=== PATIENT | female | born 2005 | race Caucasian/White ===

== ENCOUNTER 2023-12-13 21:49 | Emergency (ER) | payer OTHER, SELFPAY ==
[2023-12-13 21:52] VITALS: BP 141/85; PULSE 105; RESP 18; TEMP 36.6; O2SAT 100; BMI 25.7
[2023-12-13 22:17] VITALS: PULSE 89; O2SAT 100
[2023-12-13 22:18] VITALS: BP 132/82; PULSE 92; O2SAT 100
[2023-12-13 22:25] LABS: Add Manual Diff / Slide Review NO; Basophils Absolute Auto 0 /uL (0-100); Basophils Percent Auto 0.3 % (0-2); Eosinophils Absolute Auto 100 /uL (0-450); Eosinophils Percent Auto 1.2 % (2-4); Hematocrit 40.7 % (36-46); Hemoglobin 13.6 g/dL (12.0-16.0); Lymphocytes Absolute Auto 1600 /uL (1100-4500); Lymphocytes Percent Auto 26.3 % (25-40); Mean Corpuscular HGB Conc 33.4 % (30-36); Mean Corpuscular Hemoglobin 25.3 PG (26-34); Mean Corpuscular Volume 75.7 fL (80-100); Monocytes Absolute Auto 600 /uL (0-900); Monocytes Percent Auto 9.3 % (3-14); Neutrophils Absolute Auto 3900 /uL (1500-7000); Neutrophils Percent Auto 62.9 % (50-75); Platelet Count 297 X10^3/uL (150-400); Red Blood Cell Count 5.38 X10^6/uL (4.0-5.2); Red Cell Distribution Width 17.6 % (11.6-14.8); White Blood Cell Count 6.2 X10^3/uL (4.5-11.0)
[2023-12-13 22:30] VITALS: BP 120/76; PULSE 92; O2SAT 100
[2023-12-13 22:43] LABS: Bacteria Urine Occasional (0-1); Culture Indicated Urine Specimen Cultured; RBC Urine 30-100/HPF (0-5/HPF); Squamous Epithelial Cell Urine 0-1 /HPF (0-5/HPF); Urine Volume 10mL (spun); WBC Urine 0-1/HPF (0-5/HPF)
[2023-12-13 22:43] LABS: Alanine Aminotransferase 20 IU/L (<35); Albumin 4.8 g/dL (3.5-5.0); Albumin Globulin Ratio 1.4 (1.0-2.8); Alkaline Phosphatase 69 U/L (38-126); Aspartate Aminotransferase 27 IU/L (14-36); BUN Creatinine Ratio 17.7 (6-22); Bilirubin Total 0.6 mg/dL (0.2-1.3); Blood Urea Nitrogen 11 mg/dL (7-17); Calcium 10.1 mg/dL (8.4-10.2); Carbon Dioxide 24 mmol/L (22-32); Chloride 103 mmol/L (98-107); Estimated Glomerular Filt Rate > 60 mL/min (>60); Globulin 3.4 g/dL (1.7-4.1); Glucose 99 mg/dL (70-100); HEMOLYSIS 20 (0-50); Lipase 61 U/L (23-300); Potassium 3.5 mmol/L (3.4-5.1); Sodium 138 mmol/L (137-145); Total Protein 8.2 g/dL (6.3-8.2)
[2023-12-13 23:00] VITALS: BP 97/66; PULSE 76; O2SAT 99
[2023-12-13 23:30] VITALS: BP 103/68; PULSE 76; O2SAT 98
[2023-12-14] VITALS: BP 114/71; PULSE 85; O2SAT 100
--- NOTE | 2023-12-14 00:12 | ED_ITS ---
HPI - Abdominal Pain General Chief Complaint: Abdominal Pain Stated Complaint: Abd Pain/burning in chest Time Seen by Provider: 12/14/23 00:06 Source: patient Mode of arrival: Ambulatory History of Present Illness HPI narrative: Patient is a 18-year-old female with history of anemia currently on iron pills presents today with epigastric pain and burning in her chest. She reports it has been for the last 2 weeks. Maybe a little worse today. Sometimes she feels nauseous. She was instructed not to take any ibuprofen. She has not taken any Tums or omeprazole or [id number] medications. She has not had fever or chills. No active vomiting. She was told that she was anemic and started taking iron pills. Related Data Previous Rx's Medication Instructions Recorded omeprazole 20 mg capsule,delayed 20 mg PO DAILY #30 caps 12/14/23 release Allergies Allergy/AdvReac Type Severity Reaction Status Date / Time No Known Drug Allergies Allergy Verified 12/13/23 21:51 Patient History Social History Smoking Status: Never smoker Smoking Status: Never smoker Substance Use Type: does not use Exam Initial Vital Signs Initial Vital Signs: Vital Signs Temperature 97.9 F 12/13/23 21:52 Pulse Rate 105 H 12/13/23 21:52 Respiratory Rate 18 12/13/23 21:52 Blood Pressure 141/85 H 12/13/23 21:52 Pulse Oximetry 100 12/13/23 21:52 Oxygen Delivery Method Room Air 12/13/23 21:52 GENERAL: Alert well-appearing 18-year-old female and in no acute distress. HEENT: Head atraumatic,EOMI, pupils reactive, face symmetric, moist mucous membranes CARDIOVASCULAR: Regular rate and rhythm without murmurs, rubs or gallops. RESPIRATORY: Breath sounds equal bilaterally, no wheezes rales or rhonchi. ABDOMEN: Soft, epigastric pain no guarding no rebound negative Muro's sign no lower abdominal pain EXTREMITIES: Normal range of motion, no clubbing or edema. Neurovascularly intact NEUROLOGICAL: Alert and oriented x4 SKIN: Warm, dry, no laceration, no petechiae, no rashes or lesions. Course Orders Ordered: ED Orders 12/13/23 22:11 Complete Blood Count AUTO DIFF Stat Comprehensive Metabolic Panel Stat Lipase Stat 12/13/23 22:15 Urine Culture Stat Urine Microscopic Stat Discontinued Medications Al Hydrox/Mg Hydrox/Simethicone 20 ml/ Lidocaine HCl 15 ml 0 ml PO NOW ONE Stop: 12/14/23 00:13 Last Admin: 12/14/23 00:18 Dose: 35 ml Documented By: Ondansetron HCl (Ondansetron 4 Mg/2 Ml Inj) 4 mg IV NOW PRN PRN Reason: Nausea And Vomiting Last Admin: 12/14/23 00:19 Dose: 4 mg Documented By: Pantoprazole Sodium (Pantoprazole 40 Mg Vial) 40 mg IV NOW ONE Stop: 12/14/23 00:13 Last Admin: 12/14/23 00:24 Dose: 40 mg Documented By: Vital Signs Vital signs: Vital Signs - 8 hr 12/13/23 21:52 12/13/23 22:17 12/13/23 22:18 Temperature 97.9 F Pulse Rate 105 H 89 Respiratory Rate 18 Blood Pressure 141/85 H 132/82 Pulse Oximetry 100 100 Oxygen Delivery Method Room Air 12/13/23 22:18 12/13/23 22:30 12/13/23 22:30 Temperature Pulse Rate 92 H 92 H Respiratory Rate Blood Pressure 120/76 Pulse Oximetry 100 100 Oxygen Delivery Method 12/13/23 23:00 12/13/23 23:00 12/13/23 23:30 Temperature Pulse Rate 76 Respiratory Rate Blood Pressure 97/66 103/68 Pulse Oximetry 99 Oxygen Delivery Method 12/13/23 23:30 12/14/23 00:00 12/14/23 00:00 Temperature Pulse Rate 76 85 Respiratory Rate Blood Pressure 114/71 Pulse Oximetry 98 100 Oxygen Delivery Method 12/14/23 00:30 12/14/23 00:31 12/14/23 00:31 Temperature Pulse Rate 84 85 Respiratory Rate Blood Pressure 114/65 Pulse Oximetry 99 100 Oxygen Delivery Method MDM - Abdominal Pain Lab Data 12/13/23 22:11 12/13/23 22:11 Labs: Lab Results 12/13/23 12/13/23 Range/Units 22:11 22:15 WBC 6.2 (4.5-11.0) X10^3/uL RBC 5.38 H (4.0-5.2) X10^6/uL Hgb 13.6 (12.0-16.0) g/dL Hct 40.7 (36-46) % MCV 75.7 L (80-100) fL MCH 25.3 L (26-34) PG MCHC 33.4 (30-36) % RDW 17.6 H (11.6-14.8) % Plt Count 297 (150-400) X10^3/uL Neut % (Auto) 62.9 (50-75) % Lymph % (Auto) 26.3 (25-40) % [place] % (Auto) 9.3 (3-14) % Eos % (Auto) 1.2 L (2-4) % Baso % (Auto) 0.3 (0-2) % Neut # (Auto) 3900 (6603-5929) /uL Lymph # (Auto) 1600 (9078-0016) /uL [place] # (Auto) 600 (0-900) /uL Eos # (Auto) 100 (0-450) /uL Baso # (Auto) 0 (0-100) /uL Sodium 138 (137-145) mmol/L Potassium 3.5 (3.4-5.1) mmol/L Chloride 103 (98-107) mmol/L Carbon Dioxide 24 (22-32) mmol/L BUN 11 (7-17) mg/dL Creatinine 0.62 (0.52-1.04) mg/dL Estimated GFR > 60 (>60) mL/min BUN/Creatinine Ratio 17.7 (6-22) Glucose 99 (70-100) mg/dL Calcium 10.1 (8.4-10.2) mg/dL Total Bilirubin 0.6 (0.2-1.3) mg/dL AST 27 (14-36) IU/L ALT 20 (<35) IU/L Alkaline Phosphatase 69 (38-126) U/L Total Protein 8.2 (6.3-8.2) g/dL Albumin 4.8 (3.5-5.0) g/dL Globulin 3.4 (1.7-4.1) g/dL Albumin/Globulin Ratio 1.4 (1.0-2.8) Lipase 61 (23-300) U/L Urine RBC 30-100/hpf H (0-5/HPF) Urine WBC 0-1/hpf (0-5/HPF) Ur Squamous Epith Cells 0-1 /hpf (0-5/HPF) Urine Bacteria Occasional (0-1) (None) Ur Culture Indicated? Specimen cultured Vol Urine Centrifuged 10ml (spun) Point of care testing: Point of Care Testing Test Results Negative Urine Dip Bedside Urine Glucose Negative Bedside Urine Bilirubin - Negative Bedside Urine Ketone +/- 5 Urine Specific [place] 6.0 Bedside Urine Occult Blood +++ Bedside Urine Protein - Negative Bedside Urine Urobilinogen - Negative Bedside Urine Nitrite - Negative Bedside Urine Leukocytes +/- 15 Esterase MDM Narrative Medical decision making narrative: Patient is a healthy 18-year-old female diagnosed with anemia and probable acid reflux recently presenting today with burning in her epigastric region entire chest. Symptoms are most consistent with acid reflux. She is given Protonix and a GI cocktail in the ED which does help. Blood work has been reviewed hemoglobin 13.6 hematocrit 40 shows MCV of 75, electrolytes are stable no AMELIA no elevated bilirubin or liver enzymes lipase is 61. At this time patient has minimal epigastric pain blood work is overall reassuring she has no significant anemia. No evidence of pancreatitis in no real right upper quadrant pain. Symptoms are related to her GERD. She was not started on any medications for it. We discussed omeprazole and given a 2 week trial. Agree with avoiding ibuprofen but Tylenol is okay. Discharge Plan Departure Patient Disposition: Home Clinical Impression: GERD (gastroesophageal reflux disease) Instructions: DI for Gastroesophageal Reflux Disease (GERD) Activity Restrictions/Additional Instructions: *You have been diagnosed with acid reflux *What to do: Avoid acidic foods. He may need further evaluation. Omeprazole does take about 2 weeks but hopefully you start to notice some improved *Continue to take medications as directed Omeprazole 20 mg once a day maybe morning or night finding on when you have the worse symptoms *Follow up with your primary care provider in 2-3 days or call [phone] *Return to ER if you should have increasing pain nausea vomiting fever or any new, worsening or concerning symptoms Prescriptions: New omeprazole 20 mg capsule,delayed release(DR/EC) 20 mg PO DAILY Qty: 30 0RF Stand Alone Forms: Patient Portal/API
[2023-12-14] MEDS: MAG HYDROX/ALUMINUM/SIMETH SUS 20 ML, LIDOCAINE VISCOUS 2% 15 ML PO (00:18)
[2023-12-14] MEDS: ONDANSETRON 4 MG/2 ML INJ IV (00:19)
[2023-12-14] MEDS: PANTOPRAZOLE 40 MG VIAL IV (00:24)
[2023-12-14 00:30] VITALS: PULSE 84; O2SAT 99
[2023-12-14 00:31] VITALS: BP 114/65; PULSE 85; O2SAT 100
== END 2023-12-14 00:51 | disposition home or self-care (01) ==
PROVIDERS: Emergency Provider Emergency Medicine
DX: K21.9 Gastro-esophageal reflux disease without esophagitis (principal)
CPT/HCPCS: 36415; 80053; 81003; 81015; 81025; 83690; 85025; 87086; 96374; 96375; 99284; C9113; J2405

== ENCOUNTER 2023-12-15 21:12 | Emergency (ER) | payer OTHER, SELFPAY ==
[2023-12-15] VITALS (7 sets, daily range): BP systolic 106–141; BP diastolic 68–83; PULSE 105–121; RESP 16–20; TEMP 36.8; O2SAT 99–100; BMI 25.7
[2023-12-15] MEDS: MAG HYDROX/ALUMINUM/SIMETH SUS 20 ML, LIDOCAINE VISCOUS 2% 15 ML PO (21:50)
[2023-12-15] MEDS: PANTOPRAZOLE 40 MG VIAL IV (21:50)
[2023-12-15] MEDS: SODIUM CHLORIDE 0.9% 1,000 ML 1000 ML IV (21:51)
--- NOTE | 2023-12-15 21:57 | ED.GENADULT ---
HPI - General Adult General Chief complaint: Abdominal Pain Stated complaint: dx'd with 3 blood disorders, not feeling well Time Seen by Provider: 12/15/23 21:18 Source: patient Mode of arrival: Ambulatory History of Present Illness HPI narrative: 18-year-old female with a recent diagnosis of Willebrand's disease and hemophilia a. Was seen here in the emergency department yesterday. Diagnosed with abdominal pain most likely related to reflux disease. Was started on omeprazole. Had normal labs. Returns today for continued discomfort. She has taking the omeprazole. Discomfort not necessarily worse with palpation or eating. She is having vaginal bleeding but is on her menstrual cycle. She also states that sometimes at night when she is sleeping she reflux stomach contents into her throat. No change in bowel habits. Is on iron prescribed by primary provider. She states that she generally isn't feeling well. His episodes of lightheadedness. Related Data Previous Rx's Medication Instructions Recorded omeprazole 20 mg capsule,delayed 20 mg PO DAILY #30 caps 12/14/23 release sucralfate 100 mg/mL oral 10 ml PO QACHS #414 mL 12/15/23 suspension (Carafate) Allergies Allergy/AdvReac Type Severity Reaction Status Date / Time No Known Drug Allergies Allergy Verified 12/13/23 21:51 Review of Systems Review of Systems ROS Unobtainable: All systems reviewed & are unremarkable except as noted in HPI and below Patient History Social History Smoking Status: Never smoker Smoking Status: Never smoker Substance Use Type: does not use Exam Initial Vital Signs Initial Vital Signs: Vital Signs Pulse Rate 121 H 12/15/23 21:27 Blood Pressure 141/83 H 12/15/23 21:27 Pulse Oximetry 100 12/15/23 21:27 Oxygen Delivery Method Room Air 12/15/23 21:27 Const General: cooperative, comfortable and No ill appearing HENMT Head: normal to inspection and normocephalic Resp Effort & Inspection: normal respiratory effort Auscultation: clear to auscultation bilaterally Cardio Rate: tachycardic Rhythm: regular rhythm GI Inspection: normal to inspection and non-distended Palpation: soft, No firm, No guarding and No tender Other: Negative Muro's sign. Back/Spine/Pelvis Back: No CVA tenderness Skin General: no rashes or lesions noted Neuro General: patient alert, patient awake and moves all extremities Extrem General: capillary refill normal Course Orders Ordered: ED Orders 12/15/23 21:50 Complete Blood Count AUTO DIFF Stat Comprehensive Metabolic Panel Stat Lipase Stat Discontinued Medications Al Hydrox/Mg Hydrox/Simethicone 20 ml/ Lidocaine HCl 15 ml 0 ml PO NOW ONE Stop: 12/15/23 21:37 Last Admin: 12/15/23 21:50 Dose: 35 ml Documented By: CITLALY Sodium Chloride (Normal Saline 0.9%) 1,000 mls @ 1,000 mls/hr IV BOLUS ONE Stop: 12/15/23 22:34 Last Infusion: 12/15/23 22:51 Dose: Infused Documented By: Admin: 12/15/23 21:51 Dose: 1,000 mls/hr Documented By: CITLALY Pantoprazole Sodium (Pantoprazole 40 Mg Vial) 40 mg IV NOW ONE Stop: 12/15/23 21:37 Last Admin: 12/15/23 21:50 Dose: 40 mg Documented By: CITLALY Vital Signs Vital signs: Vital Signs - 8 hr 12/15/23 21:27 12/15/23 21:27 12/15/23 21:29 Temperature 98.3 F Pulse Rate 121 H 120 H Respiratory Rate 20 Blood Pressure 141/83 H 141/83 H Pulse Oximetry 100 100 Oxygen Delivery Method Room Air Room Air 12/15/23 21:30 12/15/23 22:00 12/15/23 22:23 Temperature Pulse Rate 113 H 112 H 106 H Respiratory Rate Blood Pressure Pulse Oximetry 99 100 100 Oxygen Delivery Method Room Air Room Air Room Air 12/15/23 22:23 12/15/23 22:30 12/15/23 22:30 Temperature Pulse Rate 107 H Respiratory Rate Blood Pressure 113/74 108/72 Pulse Oximetry 100 Oxygen Delivery Method Room Air 12/15/23 23:00 Temperature Pulse Rate 105 H Respiratory Rate 16 Blood Pressure 106/68 Pulse Oximetry 99 Oxygen Delivery Method Room Air Medical Decision Making Lab Data 12/15/23 21:50 12/15/23 21:50 Labs: Lab Results 12/15/23 Range/Units 21:50 WBC 6.2 (4.5-11.0) X10^3/uL RBC 5.13 (4.0-5.2) X10^6/uL Hgb 12.9 (12.0-16.0) g/dL Hct 38.7 (36-46) % MCV 75.4 L (80-100) fL MCH 25.1 L (26-34) PG MCHC 33.3 (30-36) % RDW 17.4 H (11.6-14.8) % Plt Count 295 (150-400) X10^3/uL Neut % (Auto) 67.8 (50-75) % Lymph % (Auto) 22.2 L (25-40) % [place] % (Auto) 8.8 (3-14) % Eos % (Auto) 0.6 L (2-4) % Baso % (Auto) 0.6 (0-2) % Neut # (Auto) 4200 (9167-2895) /uL Lymph # (Auto) 1400 (2959-3141) /uL [place] # (Auto) 500 (0-900) /uL Eos # (Auto) 0 (0-450) /uL Baso # (Auto) 0 (0-100) /uL Sodium 139 (137-145) mmol/L Potassium 3.3 L (3.4-5.1) mmol/L Chloride 103 (98-107) mmol/L Carbon Dioxide 26 (22-32) mmol/L BUN 12 (7-17) mg/dL Creatinine 0.64 (0.52-1.04) mg/dL Estimated GFR > 60 (>60) mL/min BUN/Creatinine Ratio 18.8 (6-22) Glucose 94 (70-100) mg/dL Calcium 9.6 (8.4-10.2) mg/dL Total Bilirubin 0.5 (0.2-1.3) mg/dL AST 24 (14-36) IU/L ALT 20 (<35) IU/L Alkaline Phosphatase 63 (38-126) U/L Total Protein 7.9 (6.3-8.2) g/dL Albumin 4.7 (3.5-5.0) g/dL Globulin 3.2 (1.7-4.1) g/dL Albumin/Globulin Ratio 1.5 (1.0-2.8) Lipase 64 (23-300) U/L [facility] Narrative Medical decision making narrative: Benign exam. Labs similar to yesterday. She has a very anxious affect. Her presenting symptoms are consistent with reflux disease. Symptoms improved with oral GI medicines bearing there is the potential that she has not been on the Nexium long enough for it to take effect. Will prescribe Carafate that she can use by did recommend early she continue to take the PPI because should start to work. Also advised that she talk with her primary doctor about the indications for a upper endoscopy. She was given the phone number for General surgery for this. I do feel that we can hold on any radiologic studies based on her exam today. Tried to provide as much reassurance as I could regarding her bleeding disorders and her lab test today. She was given return precautions. Discharge Plan Departure Patient Disposition: Home Clinical Impression: GERD (gastroesophageal reflux disease), Abdominal pain Instructions: DI for Abdominal Pain-Adult Activity Restrictions/Additional Instructions: continue to take the omeprazole that you were given a prescription for yesterday when you were here in the ER. You can add on the Carafate that I gave you a prescription for today. Recommend that you contact the provider that she has been seeing on [facility] to discuss the symptoms you are having today. You can also contact the general surgery department at the number provided below for follow-up to discuss the indications for a upper endoscopy. Return to the emergency department for new symptoms. Prescriptions: New sucralfate [Carafate] 100 mg/mL suspension 10 ml PO QACHS Qty: 414 0RF No Action omeprazole 20 mg capsule,delayed release(DR/EC) 20 mg PO DAILY Qty: 30 0RF Referrals: Amor Mcgowan MD [Physician] - Stand Alone Forms: Patient Portal/API
[2023-12-15 22:05] LABS: Add Manual Diff / Slide Review NO; Basophils Absolute Auto 0 /uL (0-100); Basophils Percent Auto 0.6 % (0-2); Eosinophils Absolute Auto 0 /uL (0-450); Eosinophils Percent Auto 0.6 % (2-4); Hematocrit 38.7 % (36-46); Hemoglobin 12.9 g/dL (12.0-16.0); Lymphocytes Absolute Auto 1400 /uL (1100-4500); Lymphocytes Percent Auto 22.2 % (25-40); Mean Corpuscular HGB Conc 33.3 % (30-36); Mean Corpuscular Hemoglobin 25.1 PG (26-34); Mean Corpuscular Volume 75.4 fL (80-100); Monocytes Absolute Auto 500 /uL (0-900); Monocytes Percent Auto 8.8 % (3-14); Neutrophils Absolute Auto 4200 /uL (1500-7000); Neutrophils Percent Auto 67.8 % (50-75); Platelet Count 295 X10^3/uL (150-400); Red Blood Cell Count 5.13 X10^6/uL (4.0-5.2); Red Cell Distribution Width 17.4 % (11.6-14.8); White Blood Cell Count 6.2 X10^3/uL (4.5-11.0)
[2023-12-15 22:16] LABS: Alanine Aminotransferase 20 IU/L (<35); Albumin 4.7 g/dL (3.5-5.0); Albumin Globulin Ratio 1.5 (1.0-2.8); Alkaline Phosphatase 63 U/L (38-126); Aspartate Aminotransferase 24 IU/L (14-36); BUN Creatinine Ratio 18.8 (6-22); Bilirubin Total 0.5 mg/dL (0.2-1.3); Blood Urea Nitrogen 12 mg/dL (7-17); Calcium 9.6 mg/dL (8.4-10.2); Carbon Dioxide 26 mmol/L (22-32); Chloride 103 mmol/L (98-107); Estimated Glomerular Filt Rate > 60 mL/min (>60); Globulin 3.2 g/dL (1.7-4.1); Glucose 94 mg/dL (70-100); HEMOLYSIS < 15 (0-50); Lipase 64 U/L (23-300); Potassium 3.3 mmol/L (3.4-5.1); Sodium 139 mmol/L (137-145); Total Protein 7.9 g/dL (6.3-8.2)
== END 2023-12-15 23:00 | disposition home or self-care (01) ==
PROVIDERS: Emergency Provider Emergency Medicine
DX: K21.9 Gastro-esophageal reflux disease without esophagitis (principal); R10.9 Unspecified abdominal pain
CPT/HCPCS: 36415; 80053; 83690; 85025; 96361; 96374; 99284; C9113

== ENCOUNTER 2023-12-28 11:48 | Emergency (ER) | payer OTHER, MEDICAID, SELFPAY ==
[2023-12-28] VITALS (11 sets, daily range): BP systolic 95–140; BP diastolic 56–87; PULSE 76–92; RESP 18; TEMP 36.9; O2SAT 98–100; BMI 22.9
[2023-12-28 12:23] LABS: Add Manual Diff / Slide Review NO; Basophils Absolute Auto 0 /uL (0-100); Basophils Percent Auto 0.7 % (0-2); Eosinophils Absolute Auto 100 /uL (0-450); Eosinophils Percent Auto 1.5 % (2-4); Hematocrit 39.9 % (36-46); Hemoglobin 13.4 g/dL (12.0-16.0); Lymphocytes Absolute Auto 1100 /uL (1100-4500); Lymphocytes Percent Auto 27.1 % (25-40); Mean Corpuscular HGB Conc 33.7 % (30-36); Mean Corpuscular Hemoglobin 25.9 PG (26-34); Mean Corpuscular Volume 76.8 fL (80-100); Monocytes Absolute Auto 400 /uL (0-900); Monocytes Percent Auto 10.6 % (3-14); Neutrophils Absolute Auto 2500 /uL (1500-7000); Neutrophils Percent Auto 60.1 % (50-75); Platelet Count 244 X10^3/uL (150-400); Red Blood Cell Count 5.19 X10^6/uL (4.0-5.2); Red Cell Distribution Width 18.3 % (11.6-14.8); White Blood Cell Count 4.2 X10^3/uL (4.5-11.0)
[2023-12-28 12:36] LABS: Alanine Aminotransferase 19 IU/L (<35); Albumin 4.5 g/dL (3.5-5.0); Albumin Globulin Ratio 1.6 (1.0-2.8); Alkaline Phosphatase 53 U/L (38-126); Aspartate Aminotransferase 23 IU/L (14-36); BUN Creatinine Ratio 12.7 (6-22); Bilirubin Total 0.5 mg/dL (0.2-1.3); Blood Urea Nitrogen 7 mg/dL (7-17); Calcium 9.9 mg/dL (8.4-10.2); Carbon Dioxide 27 mmol/L (22-32); Chloride 103 mmol/L (98-107); Estimated Glomerular Filt Rate > 60 mL/min (>60); Globulin 2.9 g/dL (1.7-4.1); Glucose 105 mg/dL (70-100); HEMOLYSIS < 15 (0-50); Lipase 62 U/L (23-300); Potassium 3.5 mmol/L (3.4-5.1); Sodium 140 mmol/L (137-145); Total Protein 7.4 g/dL (6.3-8.2)
--- NOTE | 2023-12-28 13:24 | PC.NURSE ---
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 Ok per Dr Reyes.
--- NOTE | 2023-12-28 13:34 | ED.ABDPAIN ---
HPI - Abdominal Pain General Chief Complaint: Abdominal Pain Stated Complaint: sharp pain lower right abd Time Seen by Provider: 12/28/23 13:32 Source: patient Mode of arrival: Ambulatory History of Present Illness HPI narrative: 18-year-old female with history of ulcer on omeprazole, and prior appendectomy. Patient presents with complaint of lower abdominal pain sort of mid to left sided. Patient states it started in the last day or so has become increasingly painful. States some slight radiation to the back but mostly in the front. She states no fevers or chills. She has had some nausea but no vomiting. No chest pain or shortness of breath, no syncope. Has had some diarrhea intermittently. No bloody stools. Has not had any dysuria, urgency or frequency. No vaginal bleeding or discharge. Patient states last menstrual period was December 12 through the . She is sexually active but states no suspicion for STI or discharge. Patient states she has not take anything for pain today. She is on omeprazole daily, she still Carafate but had an allergic reaction. Has had a prior appendectomy. No tobacco, occasional alcohol, no recreational drugs. She lives on [place]. Related Data Home Medications Medication Instructions Recorded Confirmed cholecalciferol (vitamin D3) 125 125 mcg PO DAILY 12/16/23 12/16/23 mcg (5,000 unit) capsule ferrous sulfate 325 mg (65 mg 325 mg PO DAILY 12/16/23 12/16/23 iron) tablet Previous Rx's Medication Instructions Recorded omeprazole 20 mg capsule,delayed 20 mg PO DAILY #30 caps 12/14/23 release sucralfate 100 mg/mL oral 10 ml PO QACHS #414 mL 12/15/23 suspension (Carafate) omeprazole 20 mg capsule,delayed 20 mg PO BID #60 caps 12/16/23 release sucralfate 100 mg/mL oral 10 ml PO QACHS #420 mL 12/16/23 suspension (Carafate) tramadol 50 mg tablet 50 mg PO Q6H PRN pain #10 tabs 12/28/23 Allergies Allergy/AdvReac Type Severity Reaction Status Date / Time sucralfate Allergy Intermediate Rash Verified 12/28/23 11:56 shellfish derived Allergy Verified 12/16/23 16:12 aluminum hydroxide AdvReac Rash Verified 12/28/23 12:08 [From Maalox Advanced] calcium carbonate AdvReac Rash Verified 12/28/23 12:07 [From Maalox [facility]] magnesium hydroxide AdvReac Rash Verified 12/28/23 12:07 [From Maalox Advanced] simethicone AdvReac Rash Verified 12/28/23 12:07 [From Maalox Advanced] Review of Systems Review of Systems ROS Unobtainable: All systems reviewed & are unremarkable except as noted in HPI and below Patient History Medical History Von Willebrand disease Factor VIII deficiency Hemophilia Surgical History Hx of appendectomy Social History Smoking Status: Never smoker Smoking Status: Never smoker alcohol intake frequency: 0-2 drinks per day Substance Use Type: does not use Exam Narrative Exam Narrative: GENERAL: Alert and oriented x three, female in mild distress. HEENT: Head normocephalic, atraumatic, EOMI, pupils reactive, face symmetric, moist mucous membranes NECK: Supple, full range of motion CARDIOVASCULAR: Regular rate and rhythm without murmurs, rubs or gallops. RESPIRATORY: Breath sounds equal bilaterally, no wheezes rales or rhonchi. ABDOMEN: Soft, patient has suprapubic tenderness that has also a little bit off to the left no palpable hernia. Normoactive bowel sounds all 4 quadrants. No guarding or rebound, rigidity, no mass : No CVA tenderness EXTREMITIES: Normal range of motion, no clubbing or edema. Neurovascularly intact NEUROLOGICAL: Cranial nerves II through XII grossly intact. Moving all extremities SKIN: Warm, dry, no petechiae, no rashes or lesions. Initial Vital Signs Initial Vital Signs: Vital Signs Temperature 98.5 F 12/28/23 11:50 Pulse Rate 91 H 12/28/23 11:50 Respiratory Rate 18 12/28/23 11:50 Blood Pressure 140/87 12/28/23 11:50 Pulse Oximetry 99 12/28/23 11:50 Oxygen Delivery Method Room Air 12/28/23 11:50 Course Orders Ordered: Discontinued Medications Acetaminophen (Acetaminophen 325 Mg Tablet) 975 mg PO NOW ONE Stop: 12/28/23 14:05 Last Admin: 12/28/23 14:32 Dose: 975 mg Documented By: FABY Ketorolac Tromethamine (Ketorolac 30 Mg/Ml Vial) 15 mg IV NOW ONE Stop: 12/28/23 13:45 Last Admin: 12/28/23 14:08 Dose: Not Given Documented By: FABY Ondansetron HCl (Ondansetron 4 Mg/2 Ml Inj) 4 mg IV NOW PRN PRN Reason: Nausea And Vomiting Vital Signs Vital signs: Vital Signs - 8 hr 12/28/23 11:50 12/28/23 12:02 12/28/23 12:03 Temperature 98.5 F Pulse Rate 91 H 86 92 H Respiratory Rate 18 Blood Pressure 140/87 Pulse Oximetry 99 98 100 Oxygen Delivery Method Room Air 12/28/23 12:03 12/28/23 12:30 12/28/23 12:30 Temperature Pulse Rate 82 Respiratory Rate Blood Pressure 122/77 101/72 Pulse Oximetry 100 Oxygen Delivery Method 12/28/23 13:00 12/28/23 13:00 12/28/23 13:30 Temperature Pulse Rate 80 78 Respiratory Rate Blood Pressure 95/56 L Pulse Oximetry 99 100 Oxygen Delivery Method 12/28/23 13:30 12/28/23 14:00 12/28/23 14:00 Temperature Pulse Rate 78 Respiratory Rate Blood Pressure 100/65 107/65 Pulse Oximetry 99 Oxygen Delivery Method 12/28/23 14:30 12/28/23 14:30 Temperature Pulse Rate 76 Respiratory Rate 18 Blood Pressure 111/73 Pulse Oximetry 99 Oxygen Delivery Method MDM - Abdominal Pain Lab Data 12/28/23 12:12 12/28/23 12:12 Labs: Lab Results 12/28/23 Range/Units 12:12 WBC 4.2 L (4.5-11.0) X10^3/uL RBC 5.19 (4.0-5.2) X10^6/uL Hgb 13.4 (12.0-16.0) g/dL Hct 39.9 (36-46) % MCV 76.8 L (80-100) fL MCH 25.9 L (26-34) PG MCHC 33.7 (30-36) % RDW 18.3 H (11.6-14.8) % Plt Count 244 (150-400) X10^3/uL Neut % (Auto) 60.1 (50-75) % Lymph % (Auto) 27.1 (25-40) % Haakon % (Auto) 10.6 (3-14) % Eos % (Auto) 1.5 L (2-4) % Baso % (Auto) 0.7 (0-2) % Neut # (Auto) 2500 (3039-1504) /uL Lymph # (Auto) 1100 (5860-4344) /uL Haakon # (Auto) 400 (0-900) /uL Eos # (Auto) 100 (0-450) /uL Baso # (Auto) 0 (0-100) /uL Sodium 140 (137-145) mmol/L Potassium 3.5 (3.4-5.1) mmol/L Chloride 103 (98-107) mmol/L Carbon Dioxide 27 (22-32) mmol/L BUN 7 (7-17) mg/dL Creatinine 0.55 (0.52-1.04) mg/dL Estimated GFR > 60 (>60) mL/min BUN/Creatinine Ratio 12.7 (6-22) Glucose 105 H (70-100) mg/dL Calcium 9.9 (8.4-10.2) mg/dL Total Bilirubin 0.5 (0.2-1.3) mg/dL AST 23 (14-36) IU/L ALT 19 (<35) IU/L Alkaline Phosphatase 53 (38-126) U/L Total Protein 7.4 (6.3-8.2) g/dL Albumin 4.5 (3.5-5.0) g/dL Globulin 2.9 (1.7-4.1) g/dL Albumin/Globulin Ratio 1.6 (1.0-2.8) Lipase 62 (23-300) U/L HCG, Quant < 2.4 mIU/mL Point of care testing: Point of Care Testing Test Results Negative Urine Dip Bedside Urine Glucose Negative Bedside Urine Bilirubin - Negative Bedside Urine Ketone - Negative Urine Specific [place] 1.005 Bedside Urine Occult Blood - Negative Bedside Urine pH 6.5 Bedside Urine Protein - Negative Bedside Urine Urobilinogen +/- 1mg Bedside Urine Nitrite - Negative Bedside Urine Leukocytes - Negative Esterase Imaging Data US - CR[employer]ER: Radiologist's Impression: [address] [address] Ultrasound Report Signed Patient: Roxie Wright MR#: [id number] : 2005 Acct:[id number] Age/Sex: 18 / F Date of Service: 12/28/23 Loc: ED Accession Number: [id number] Procedure: US pelvic complete Ordering Provider: Nhung Reyes D.O. PROCEDURE: US PELVIC COMPLETE INDICATIONS: PAIN TECHNIQUE: Real-time scanning was performed of the pelvic organs, with image documentation. Additional endovaginal scanning was necessary due to incomplete visualization of the adnexal and endometrial structures by transabdominal scanning. COMPARISON: None. FINDINGS: Uterus: Uterus is anteverted and normal in size at 8.1 x 5.5 x 3.8 cm. The myometrium is homogeneous. The endometrium measures 15.7 mm combined thickness. Small amount of simple fluid in the lower uterine segment. Ovaries: The right ovary measures 3.8 x 2.3 x 1.6 cm, with a calculated ovarian volume of 7.1 cc. The left ovary measures 4.0 x 3.0 x 1.9 cm, with a calculated ovarian volume of 11.5 cc. The ovaries have a normal sonographic appearance. Less than 12 follicles can be seen in each ovary. No adnexal masses are seen. Other: No pathologic free abdominal or pelvic fluid. Prominent bilateral christine-adnexal veins. IMPRESSION: No evidence of ovarian torsion. Prominent bilateral christine-adnexal veins. Finding is nonspecific but could represent pelvic venous insufficiency (pelvic congestion syndrome). Dictated by: Obdulia Aldridge MD, PhD on 12/28/2023 at 15:37 Approved by: Obdulia Aldridge MD, PhD on 12/28/2023 at 15:41 [facility] Narrative Medical decision making narrative: 18-year-old female with a proximally 24+ hours of lower abdominal pain a little bit more left than the right. Patient has had a prior appendectomy. Patient's vitals are overall appropriate, her labs including CBC CMP and lipase do not show any clear change, point of care is negative, point of care urine does not show a clear source. After discussion with patient about differential, discussed pelvic ultrasound versus CT patient prefers to prefer so with ultrasound initially. Agree with this plan. She defers pelvic exam at this point states low suspicion for STI. HCG is negative. Pelvic ultrasound no evidence of ovarian torsion left ovaries 4 x 1.9 x 3 cm, right ovary 3.8 x 2.3 x 1.6 cm, prominent bilateral. Neck veins nonspecific but could represent pelvic venous insufficiency/congestion syndrome. Spoke with JAMESON Mitchell patient does not have organizational effectiveness consultant to follow up with them and to copy him so they can set up an appointment. If she does to follow up. But patient and discharge home with follow-up. Discharge Plan Departure Patient Disposition: Home Clinical Impression: Pelvic pain Activity Restrictions/Additional Instructions: Please follow up with woods superintendent for recheck. Your ultrasound shows some prominent periadnexal veins this is nonspecific but could represent pelvic venous insufficiency in his recommended to follow up with OBGYN. You may take Tylenol up to a 1000 mg every 6 hours as needed for pain. If inadequate for pain prescription for some additional pain medication is included. This medication can make you sleepy do not drive, perform hazardous activities or make any major decisions while taking it. This medication will make you constipated please take a stool softener once to twice daily until stools are soft and regular. Prescription sent to [facility] Please return for fevers, rapidly worsening abdominal back or flank pain, persistent vomiting, lightheadedness or passing out or other new or concerning changes. Prescriptions: New tramadol 50 mg tablet 50 mg PO Q6H PRN (Reason: pain) Qty: 10 0RF No Action cholecalciferol (vitamin D3) 125 mcg (5,000 unit) capsule 125 mcg PO DAILY ferrous sulfate 325 mg (65 mg iron) tablet 325 mg PO DAILY sucralfate [Carafate] 100 mg/mL suspension 10 ml PO QACHS Qty: 420 0RF omeprazole 20 mg capsule,delayed release(DR/EC) 20 mg PO BID Qty: 60 0RF omeprazole 20 mg capsule,delayed release(DR/EC) 20 mg PO DAILY Qty: 30 0RF sucralfate [Carafate] 100 mg/mL suspension 10 ml PO QACHS Qty: 414 0RF Referrals: Tia Quiroga MD [Primary Care Provider] - Juanjo Candelaria MD [Physician] - Stand Alone Forms: Patient Portal/API
--- NOTE | 2023-12-28 13:44 | DI.US.S_ITS ---
PROCEDURE: US PELVIC COMPLETE INDICATIONS: PAIN TECHNIQUE: Real-time scanning was performed of the pelvic organs, with image documentation. Additional endovaginal scanning was necessary due to incomplete visualization of the adnexal and endometrial structures by transabdominal scanning. COMPARISON: None. FINDINGS: Uterus: Uterus is anteverted and normal in size at 8.1 x 5.5 x 3.8 cm. The myometrium is homogeneous. The endometrium measures 15.7 mm combined thickness. Small amount of simple fluid in the lower uterine segment. Ovaries: The right ovary measures 3.8 x 2.3 x 1.6 cm, with a calculated ovarian volume of 7.1 cc. The left ovary measures 4.0 x 3.0 x 1.9 cm, with a calculated ovarian volume of 11.5 cc. The ovaries have a normal sonographic appearance. Less than 12 follicles can be seen in each ovary. No adnexal masses are seen. Other: No pathologic free abdominal or pelvic fluid. Prominent bilateral christine-adnexal veins. IMPRESSION: No evidence of ovarian torsion. Prominent bilateral christine-adnexal veins. Finding is nonspecific but could represent pelvic venous insufficiency (pelvic congestion syndrome). Dictated by: Obdulia Aldridge MD, PhD on 12/28/2023 at 15:37 Approved by: Obdulia Aldridge MD, PhD on 12/28/2023 at 15:41
[2023-12-28] MEDS: ACETAMINOPHEN 325 MG TABLET 975 MG PO (14:32)
[2023-12-28 15:37] LABS: HCG Quantitative /Beta subunit < 2.4 mIU/mL
== END 2023-12-28 17:19 | disposition home or self-care (01) ==
PROVIDERS: Emergency Provider Emergency Medicine; PCP Family Medicine
DX: R10.2 Pelvic and perineal pain (principal)
CPT/HCPCS: 36415; 76830; 76856; 80053; 81003; 81025; 83690; 84702; 85025; 93975; 99283; 99284